=== PATIENT | male | born 1960 | race Caucasian/White ===

== ENCOUNTER 2018-06-24 13:39 | Emergency (ER) | payer OTHER ==
[2018-06-24] MEDS ORDERED: HYDROmorphONE/DILAUDID 2 MG/ML INJ IVP ONE (14:01)
[2018-06-24] MEDS ORDERED: NS 1,000 ML IV ONE (14:01)
[2018-06-24] MEDS ORDERED: ONDANSETRON 4 MG/2 ML VIAL IVP ONE (14:01)
--- NOTE | 2018-06-24 14:04 | EDPHY ---
H & P Stated Complaint: L flank pn 0245 this am, denies hematuria, enema temp relief Time Seen by Provider: 06/24/18 13:43 HPI/ROS: CHIEF COMPLAINT: Left-sided abdominal pain, left flank pain HISTORY OF PRESENT ILLNESS: 57-year-old male reports the development of left- sided abdominal pain at 2:45 a.m. This morning. Patient has pain in the left mid quadrant, lower quadrant, into the left groin, and also feels that into his back. Feels like he has a balloon that is being expanded. Used an enema this morning with some relief but then the pain recurred after 15 min. No previous history of similar discomfort. No fevers or chills, chest pain, shortness of breath, diarrhea, urinary complaints. Denies any hesitancy, urgency, or hematuria. No lightheadedness. Vomited last night in an attempt to make himself feel better. REVIEW OF SYSTEMS: A comprehensive 10 system review of systems was reviewed and is otherwise negative aside from elements mentioned in the history of present illness and medical decision making. PAST MEDICAL HISTORY: Hernia repair bilateral inguinal, appendectomy at age 11 SOCIAL HISTORY: Smoker, occasional alcohol, positive marijuana use. 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 VITAL SIGNS Reviewed by me. GENERAL: Well-developed, well-nourished, seems uncomfortable. HEENT: Atraumatic. Eyes: No icterus, no injection. Mouth: moist mucous membranes. No erythema or lesions. Neck: supple with no adenopathy. LUNGS: Clear to auscultation bilaterally, no wheezes, rhonchi or rales. CARDIAC: Regular rate and rhythm, no rubs, murmurs or gallops. ABDOMEN: [Soft, no right upper quadrant or right lower quadrant tenderness. Mild left upper quadrant tenderness. Moderate left mid and lower quadrant tenderness. No guarding or rebound. No obvious distention of but the patient feels somewhat bloated. : Normal external male genitalia, no testicular swelling. BACK: Left CVA tenderness. EXTREMITIES: No trauma. No edema. Range of motion is normal throughout. NEURO: Alert and oriented, grossly nonfocal. SKIN: Warm and dry, no rash. PSYCHIATRIC: Normal mentation, no agitation. - Personal History Current Tetanus/Diphtheria Vaccine: Unsure - Medical/Surgical History Hx Asthma: No Hx Chronic Respiratory Disease: No Hx Diabetes: No Hx Cardiac Disease: No Hx Renal Disease: No Hx Cirrhosis: No Hx Alcoholism: No Hx HIV/AIDS: No Hx Splenectomy or Spleen Trauma: No Other PMH: appendectomy, hernia repair - Social History Smoking Status: Current every day smoker Constitutional: Initial Vital Signs Temperature (C) 36.7 C 06/24/18 13:44 Heart Rate 65 06/24/18 13:44 Respiratory Rate 16 06/24/18 13:44 Blood Pressure 149/92 H 06/24/18 13:44 O2 Sat (%) 97 06/24/18 13:44 O2 Delivery Mode Room Air Allergies/Adverse Reactions: No Known Allergies Allergy (Verified 06/24/18 13:44) Home Medications: Medication Instructions Recorded Hydrocodone/APAP 5/325 [[place] 1 tab PO Q4 PRN #15 tab 07/02/13 5/325 (RX)] Ondansetron Odt [Zofran Odt 4 mg 4 mg PO Q6 PRN #8 tab 06/24/18 (RX)] Tamsulosin HCl [Flomax] 0.4 mg PO DAILY #7 cap 06/24/18 oxyCODONE HCL/ACETAMINOPHEN 1 each PO Q6 PRN #15 tablet 06/24/18 [Oxycodone-Acetaminophen 5-325] Medical Decision Making - Diagnostics Imaging Results: Imaging Impressions Abdomen/Pelvis CT 06/24/18 14:01 Impression: 1. Moderate obstructive uropathy secondary to a 3 mm stone at the left ureterovesical junction. 2. 5-mm lingular nodule. Given upper lobe distribution, recommend follow-up CT chest unenhanced in one year unless there are outside studies to document stability of the finding. 3. Punctate nephrolithiasis. 4. Moderate stool in the proximal colon. 5. Degenerative change in the spine. 6. Small hiatal hernia. 7. Additional findings, as above. Findings discussed with Roz Stokes MD on June 24, 2018 at 1445 hours. Attention: This CT examination is specifically designed to evaluate patients who are clinically suspected of having acute obstructive uropathy. This examination does not use radiographic contrast and provides only a limited evaluation of the abdomen, pelvis, and retroperitoneum. If there is further clinical suspicion for pathological conditions other than obstructive uropathy, a complete CT evaluation of the abdomen and pelvis utilizing intravenous and enteric contrast should be considered. ED Course/Re-evaluation: Patient was seen briefly at [facility]. Urine dip there shows 50+ blood. Patient IV placed. He received Dilaudid, IV fluid, and Zofran. Patient underwent CT scan which demonstrated a left-sided kidney stone at the UVJ with moderate hydronephrosis and hydroureter. On re-examination patient is resting comfortably. Pain has diminished in patient is no longer nauseous. We discussed his kidney stone diagnosis, the importance of staying hydrated, importance of ibuprofen as baseline pain meds, oxycodone if needed for more severe pain, and daily Flomax. Patient will strain his urine will follow up with Urology as directed. Patient did provide a urine sample here in the emergency department. We will contact him if it appears to be infected. Urine from [facility] did not dip positive for any infectious signs. Urine microscopic here, 1-3 red cells, 1-3 white cells, no bacteria Differential Diagnosis: After obtaining the patient's history and performing an examination, differential diagnosis considered included but was not limited to appendicitis, cholecystitis, gastritis, pancreatitis, kidney stones, urinary tract infections and other causes. - Data Points Laboratory Results: Laboratory Results 06/24/18 14:05 06/24/18 14:05 06/24/18 06/24/18 06/24/18 15:15 14:05 14:05 WBC 10.32 10^3/uL H 10^3/uL (3.80-9.50) RBC 4.86 10^6/uL 10^6/uL (4.40-6.38) Hgb 16.0 g/dL g/dL (13.7-17.5) Hct 45.7 % % (40.0-51.0) MCV 94.0 fL fL (81.5-99.8) MCH 32.9 pg pg (27.9-34.1) MCHC 35.0 g/dL g/dL (32.4-36.7) RDW 12.0 % % (11.5-15.2) Plt Count 200 10^3/uL 10^3/uL (150-400) MPV 9.3 fL fL (8.7-11.7) Neut % (Auto) 85.2 % H % (39.3-74.2) Lymph % (Auto) 8.2 % L % (15.0-45.0) Todd % (Auto) 6.2 % % (4.5-13.0) Eos % (Auto) 0.0 % L % (0.6-7.6) Baso % (Auto) 0.1 % L % (0.3-1.7) Nucleat RBC Rel Count 0.0 % % (0.0-0.2) Absolute Neuts (auto) 8.79 10^3/uL H 10^3/uL (1.70-6.50) Absolute Lymphs (auto) 0.85 10^3/uL L 10^3/uL (1.00-3.00) Absolute Monos (auto) 0.64 10^3/uL 10^3/uL (0.30-0.80) Absolute Eos (auto) 0.00 10^3/uL L 10^3/uL (0.03-0.40) Absolute Basos (auto) 0.01 10^3/uL L 10^3/uL (0.02-0.10) Absolute Nucleated RBC 0.00 10^3/uL 10^3/uL (0-0.01) Immature Gran % 0.3 % % (0.0-1.1) Immature Gran # 0.03 10^3/uL 10^3/uL (0.00-0.10) Sodium 134 mEq/L L mEq/L (135-145) Potassium 4.4 mEq/L mEq/L (3.5-5.2) Chloride 101 mEq/L mEq/L (97-110) Carbon Dioxide 20 mEq/l L mEq/l (22-31) Anion Gap 13 mEq/L mEq/L (6-14) BUN 17 mg/dL mg/dL (7-23) Creatinine 0.9 mg/dL mg/dL (0.7-1.3) Estimated GFR > 60 Glucose 115 mg/dL H mg/dL (70-100) Calcium 9.5 mg/dL mg/dL (8.5-10.4) Urine Color YELLOW Urine Appearance CLEAR Urine pH 7.0 (5.0-7.5) Ur Specific Lester 1.016 (1.002-1.030) Urine Protein NEGATIVE (NEGATIVE) Urine Ketones 1+ H (NEGATIVE) Urine Blood NEGATIVE (NEGATIVE) Urine Nitrate NEGATIVE (NEGATIVE) Urine Bilirubin NEGATIVE (NEGATIVE) Urine Urobilinogen NEGATIVE EU EU (0.2-1.0) Ur Leukocyte Esterase NEGATIVE (NEGATIVE) Urine RBC 1-3 /hpf /hpf (0-3) Urine WBC 1-3 /hpf /hpf (0-3) Ur Epithelial Cells TRACE /lpf /lpf (NONE-1+) Urine Mucus TRACE /lpf /lpf (NONE-1+) Urine Glucose NEGATIVE (NEGATIVE) Medications Given: Discontinued Medications Hydromorphone HCl (Dilaudid) 1 mg IVP EDNOW ONE Stop: 06/24/18 14:02 Last Admin: 06/24/18 14:08 Dose: 1 mg Sodium Chloride (Ns) 1,000 mls @ 0 mls/hr IV EDNOW ONE; Wide Open PRN Reason: Protocol Stop: 06/24/18 14:02 Last Admin: 06/24/18 14:07 Dose: 1,000 mls Ketorolac Tromethamine (Toradol) 30 mg IVP EDNOW ONE Stop: 06/24/18 14:47 Last Admin: 06/24/18 14:53 Dose: 30 mg Ondansetron HCl (Zofran) 4 mg IVP EDNOW ONE Stop: 06/24/18 14:02 Last Admin: 06/24/18 14:08 Dose: 4 mg Tamsulosin HCl (Flomax) 0.4 mg PO EDNOW ONE Stop: 06/24/18 14:48 Last Admin: 06/24/18 14:52 Dose: 0.4 mg Departure - Departure Disposition: Home, Routine, Self-Care Clinical Impression: Renal colic on left side Condition: Fair Instructions: Kidney Stones (ED), Renal Colic (ED), How to Strain Your Urine ( ED) Additional Instructions: Take hydrocodone as needed for severe pain. Use Zofran as needed for nausea. Take ibuprofen 600 mg every 6-8 hours as needed for moderate pain. This will also help with inflammation. Take Flomax as directed. Followup with urology as directed below. Strain urine. Return to the emergency department if you have worsening pain, fevers, persistent vomiting, or other concerns. Referrals: Amandeep Hyman MD [Medical Doctor] - As per Instructions Prescriptions: Ondansetron Odt [Zofran Odt 4 mg (RX)] 4 mg PO Q6 PRN #8 tab PRN Reason: Nausea oxyCODONE HCL/ACETAMINOPHEN [Oxycodone-Acetaminophen 5-325] 1 each PO Q6 PRN # 15 tablet PRN Reason: Pain, Breakthrough Tamsulosin HCl [Flomax] 0.4 mg PO DAILY #7 cap
[2018-06-24 14:37] LABS: PLATELET COUNT 200 10^3/uL (150-400)
[2018-06-24] MEDS ORDERED: KETOROLAC 30 MG/1 ML SDV IVP ONE (14:46)
[2018-06-24] MEDS ORDERED: TAMSULOSIN HCL 0.4 MG CAP PO ONE (14:47)
[2018-06-24 15:25] VITALS: BP 141/89
== END 2018-06-24 15:13 | disposition home or self-care (01) ==
DX: N23 Unspecified renal colic (principal); N20.2 Calculus of kidney with calculus of ureter; N13.8 Other obstructive and reflux uropathy; E86.9 Volume depletion, unspecified
CPT/HCPCS: 96374; J1170; J1885; J2405